=== PATIENT | female | born 1960 | race Hispanic/Latino ===

== ENCOUNTER 2022-05-14 23:23 | Emergency (ER) | payer OTHER ==
[~2022-05-14] VITALS: Ht 157.5 cm; Wt 75.3 kg
[2022-05-15] MEDS ORDERED: IPRATROPIUM/ALBUTEROL SULFATE 3 ML SOLUTION IH ONE (02:30)
[2022-05-15] MEDS ORDERED: SOLU-MEDROL 125MG VIAL IVP ONE (03:00)
[2022-05-15] MEDS ORDERED: ALBUTEROL 0.083% 2.5 MG/3 ML INH IH STA ×2 (03:19→03:20)
[2022-05-15] MEDS ORDERED: PRED20TA3 PO (04:35)
[2022-05-15] MEDS ORDERED: IPRNEB IH (04:35)
[2022-05-15 05:27] VITALS: BP 126/72
== END 2022-05-15 05:28 | disposition home or self-care (01) ==
LOC: EDH 23:23
DX: J45.901 Unspecified asthma with (acute) exacerbation (principal)
CPT/HCPCS: 99285; 96374; 71045; 94640 ×3; J2930